=== PATIENT | female | born 1960 | race Caucasian/White ===

== ENCOUNTER 2018-11-27 00:21 | Outpatient (CLI) | payer OTHER, SELFPAY ==
--- NOTE | 2018-11-27 15:30 | DI.MAMMO_ITS ---
SYMPTOM/DIAGNOSIS: SCREENING, Z12.31 MAMMOGRAMS: Mammograms were interpreted according to the usual protocol including computer analysis with CAD system, tomosynthesis and C view imaging. Comparison is made with prior examinations. Breast density, Category C. No suspicious masses or microcalcifications are seen. There is no definite evidence of malignancy. IMPRESSION: Negative mammogram. Routine screening is recommended. Category 1C. MQSA ASSESSMENT OF FINDINGS: Negative. Category 1. Patient will receive a letter notifying them of these results. Bi-RADS category C. The breasts are heterogeneously dense, which may obscure small masses.
== END 2018-11-27 00:41 ==
PROVIDERS: PCP Neuromusculoskeletal Medicine & OMM; Visit Provider Neuromusculoskeletal Medicine & OMM
DX: Z12.31 Encounter for screening mammogram for malignant neoplasm of breast (principal)
CPT/HCPCS: 77063; 77067

== ENCOUNTER 2020-10-22 02:36 | Outpatient (CLI) | payer OTHER, SELFPAY ==
--- NOTE | 2020-10-22 | DI.MAMMO_ITS ---
EXAM: MG MAMMO SCREENING CLINICAL HISTORY: SCREENING, Z00.00 TECHNIQUE: Mammograms were interpreted according to the usual protocol including computer analysis w [employer] CAD system, tomosynthesis and C-view imaging. COMPARISON: FINDINGS: The breasts are heterogeneously dense. No dominant mass or clumped microcalcification is identified in either breast. The examination is compared with multiple previous examinations including November 2018 and there has been no gross interval change in appearance in comparison with the prior studies. IMPRESSION: No specific evidence of malignancy at this time. Routine screening examinations are suggested at yea rly intervals due to the family history of breast carcinoma. BI-RADS Category 1 - Negative Breast Density - Category C - Heterogeneously dense
== END 2020-10-22 02:56 ==
PROVIDERS: PCP Neuromusculoskeletal Medicine & OMM; Visit Provider Neuromusculoskeletal Medicine & OMM
DX: Z00.00 Encounter for general adult medical examination without abnormal findings (principal); Z12.31 Encounter for screening mammogram for malignant neoplasm of breast; Z80.3 Family history of malignant neoplasm of breast
CPT/HCPCS: 77063; 77067

== ENCOUNTER 2021-12-29 16:23 | Outpatient (CLI) | payer OTHER, SELFPAY ==
--- NOTE | 2021-12-29 | DI.MAMMO_ITS ---
Exam(s) MAMMO SCREENING EXAM: MAMMO SCREENING CLINICAL HISTORY: SCREENING MAMMO FOR BREAST CANCER Z12.31 TECHNIQUE: Mammograms were interpreted according to the usual protocol including computer analysis w [facility] CAD system, tomosynthesis and C-view imaging. COMPARISON: FINDINGS: The breasts are heterogeneously dense. No dominant mass or clumped microcalcification is identified in either breast. The current examination is compared with previous examinations including September 2020 and there has been no gross interval change in appearance in comparison with the prior studies. IMPRESSION: No specific evidence of malignancy at this time. Routine screening examinations are suggested at yea rly intervals due to the family history of breast carcinoma. BI-RADS Category 1 - Negative Breast Density - Category C - Heterogeneously dense
== END 2021-12-29 16:43 ==
PROVIDERS: PCP Neuromusculoskeletal Medicine & OMM; Visit Provider Neuromusculoskeletal Medicine & OMM
DX: Z12.31 Encounter for screening mammogram for malignant neoplasm of breast (principal); R92.8 Other abnormal and inconclusive findings on diagnostic imaging of breast
CPT/HCPCS: 77063; 77067

== ENCOUNTER → 2022-05-18 02:48 | Outpatient (CLI) | payer OTHER, SELFPAY ==
--- NOTE | 2022-05-18 15:30 | DI.DEXA_ITS ---
Exam(s) XR DEXA BONE DENSITY W/WO NICOLA EXAM: XR DEXA BONE DENSITY W/WO NICOLA CLINICAL HISTORY: FAMILY H/O OSTEOPOROSIS, Z82.62 TECHNIQUE: [employer] C densitometer analysis of left hip, lumbar spine and left forearm. COMPARISON: No exams were available for comparison FINDINGS: Lateral view of the thoracic and lumbar spine shows no evidence of compression fractures. Bone mineral density measurements of the lumbar spine correspond to a total T-score of -3.0, in the osteoporotic range. Bone mineral density measurements of the left hip correspond to a total T-score of -1.6. The femora l neck T-score is -1.9, in the osteopenic range.. The left forearm bone mineral density measurements correspond to a T-score of the distal 3rd of -0.7 , in the normal range.. IMPRESSION: Osteoporosis of the lumbar spine. Osteopenia of the left hip and normal bone mineral density of the left forearm.
== END ==
PROVIDERS: PCP Neuromusculoskeletal Medicine & OMM; Visit Provider Neuromusculoskeletal Medicine & OMM
DX: Z82.62 Family history of osteoporosis (principal); M81.0 Age-related osteoporosis without current pathological fracture; M85.89 Other specified disorders of bone density and structure, multiple sites
CPT/HCPCS: 77080

== ENCOUNTER 2022-05-19 08:12 | Outpatient (CLI) | payer OTHER, SELFPAY ==
--- NOTE | 2022-05-19 08:00 | RT.EKG_ITS ---
APPROVED REPORT Exam: Resting ECG Reason for Exam: CP Patient Location: O HR:58 bpm ECG Measurements Heart Rate 58 AXIS DC 140 P 59 QRSd 106 QRS 21 QT 410 T 27 QTc 403 Conclusion Sinus rhythm...normal P axis, V-rate 50- 99 Baseline wander in lead(s) V1 Normal Electrocardiogram
== END 2022-05-19 08:13 | disposition home or self-care (01) ==
LOC: DI.CARD 08:13
PROVIDERS: PCP Neuromusculoskeletal Medicine & OMM; Visit Provider Internal Medicine Cardiovascular Disease
DX: R07.9 Chest pain, unspecified (principal)
CPT/HCPCS: 93010

== ENCOUNTER 2022-12-29 13:35 | Outpatient (REF) | payer OTHER, SELFPAY ==
[2022-12-29 12:36] LABS: C Diff PCR Negative (Negative)
[2022-12-29 23:39] LABS: Campylobacter PCR Negative (Negative); Shiga Toxin PCR Negative (Negative); Shigella/Enteroinvasive Ecoli Negative (Negative)
[2022-12-30 08:47] LABS: Salmonella PCR Positive (Negative)
[2023-01-02 12:43] LABS: Calprotectin <50.0 mcg/g
== END 2022-12-29 13:36 | disposition home or self-care (01) ==
LOC: LBN 13:35
PROVIDERS: PCP Neuromusculoskeletal Medicine & OMM; Visit Provider Physician Assistant Medical
DX: R19.7 Diarrhea, unspecified (principal)
CPT/HCPCS: 87493; 87505; 83993; 87177

== ENCOUNTER 2023-01-15 10:57 | Outpatient (REF) | payer OTHER, SELFPAY ==
[2023-01-15 22:44] LABS: Campylobacter PCR Negative (Negative); Salmonella PCR Negative (Negative); Shiga Toxin PCR Negative (Negative); Shigella/Enteroinvasive Ecoli Negative (Negative)
== END 2023-01-15 10:58 | disposition home or self-care (01) ==
LOC: LBN 10:57
PROVIDERS: Physician Assistant Medical; PCP Neuromusculoskeletal Medicine & OMM; Visit Provider Neuromusculoskeletal Medicine & OMM
DX: B96.89 Other specified bacterial agents as the cause of diseases classified elsewhere (principal)
CPT/HCPCS: 87505; 87177

== ENCOUNTER 2023-01-26 12:47 | Outpatient (CLI) | payer OTHER, SELFPAY ==
--- NOTE | 2023-01-26 11:11 | DI.MAMMO_ITS ---
Exam(s) MAMMO SCREENING EXAM: MAMMO SCREENING CLINICAL HISTORY: SCREENING, Z00.00,ENCOUNTER FOR GEN MEDICAL EXAM. TECHNIQUE: Bilateral full field digital CC and MLO mammographic images were obtained with 3D tomosyn thesis and utilizing computer aided detection (CAD). COMPARISON: Prior mammograms were reviewed. FINDINGS: Fibroglandular tissue is again noted to be moderately dense. Asymmetric tissue medial of center in the right breast is unchanged from prior studies. Small nodular density lateral of center in left breast seen on CC view located 3 cm in from the nippl e is more evident than on prior studies. On the left MLO view there few nodular densities which are also someone unchanged in some slightly mo re prominent than on prior studies. One possible new nodule in the right breast. Benign-appearing microcalcifications again noted bilaterally. No new architectural distortion or skin thickening-traction. IMPRESSION: Moderately dense bilateral fibroglandular tissue. Bilateral nodular densities. Bilateral complete breast ultrasound recommended. BI-RADS Category 0 - Assessment Incomplete: Need additional imaging evaluation Breast Density - Category C - Heterogeneously dense Breast density Category C or D implies that the patient has dense breast tissue. Dense breast tissue can make it harder to find cancer on a mammogram. Dense breast tissue is also associated with an incr eased risk of breast cancer. This information about the result of the mammogram report was provided to the patient to raise their awareness. Use this report when you speak with the patient about their risks for breast cancer, which includes their family history. At that time, you may recommend additional screening tests (Ultrasoun d or MRI) as these tests may add significant information. A negative radiographic report should not delay biopsy if a dominant or clinically suspicious mass is present. Up to ten percent of cancers are not identified on mammography. A negative report may reinforce clinical impression. Adenosis and dense breasts may obscure an underlying neoplasm. False positive reports average 6 to 10%. Patient will receive a letter notifying them of these results.
== END 2023-01-26 13:07 ==
LOC: DI 12:48
PROVIDERS: PCP Neuromusculoskeletal Medicine & OMM; Visit Provider Neuromusculoskeletal Medicine & OMM
DX: Z00.00 Encounter for general adult medical examination without abnormal findings (principal); Z12.31 Encounter for screening mammogram for malignant neoplasm of breast; R92.8 Other abnormal and inconclusive findings on diagnostic imaging of breast
CPT/HCPCS: 77063; 77067

== ENCOUNTER 2023-02-07 01:46 | Outpatient (CLI) | payer OTHER, SELFPAY ==
--- NOTE | 2023-02-07 | DI.US_ITS ---
Exam(s) MG MAMMO SCREEN CALL BACK UNI US BREAST LT LIMITED EXAM: MG MAMMO SCREEN CALL BACK UNI and U/S breast LT limited CLINICAL HISTORY: bilat nodular densities, R92.8 abnl mammo. TECHNIQUE: Craniocaudal and mediolateral oblique Full Field Digital Mammography views of the left br east with Computer Aided Diagnosis followed by Tomosynthesis and left breast ultrasound. COMPARISON: Comparison is made with prior examinations. FINDINGS: Mammography/Tomosynthesis: Masses/Architectural Distortion: There is a well-circumscribed ovoid nodule in the lower outer quadra nt of the left breast. When compared to multiple prior examinations there has been no significant ch skyler in this nodule. No suspicious nodules or areas of architectural distortion are seen. Microcalcifictions: No suspicious pleomorphic-type are seen. Skin Thickening/Nipple Retraction: None. Limited left breast US: Echotexture: Normal appearance of the glandular tissue. Shadowing: No suspicious foci. Cyst: There is a 0.5 cm simple cyst at the 8 o'clock position of the left breast 5 cm from the nipple . Solid lesions: None seen. Ductal dilation: None. IMPRESSION: 1. No evidence of malignancy is noted. 2. Unless there is more urgent need, follow-up screening mammography is recommended, as per [place] [employer] guidelines. 3. The findings were discussed with the patient on the date of the examination. BI-RADS Category 2 - Benign Findings Breast Density - Category C - Heterogeneously dense Breast density Category C or D implies that the patient has dense breast tissue. Dense breast tissue can make it harder to find cancer on a mammogram. Dense breast tissue is also associated with an incr eased risk of breast cancer. This information about the result of the mammogram report was provided to the patient to raise their awareness. Use this report when you speak with the patient about their risks for breast cancer, which includes their family history. At that time, you may recommend additional screening tests (Ultrasoun d or MRI) as these tests may add significant information. A negative radiographic report should not delay biopsy if a dominant or clinically suspicious mass is present. Up to ten percent of cancers are not identified on mammography. A negative report may reinforce clinical impression. Adenosis and dense breasts may obscure an underlying neoplasm. False positive reports average 6 to 10%. Patient will receive a letter notifying them of these results.
== END 2023-02-07 02:06 ==
LOC: DI 01:46
PROVIDERS: PCP Neuromusculoskeletal Medicine & OMM; Visit Provider Neuromusculoskeletal Medicine & OMM
DX: Z12.31 Encounter for screening mammogram for malignant neoplasm of breast (principal); R92.8 Other abnormal and inconclusive findings on diagnostic imaging of breast; N63.23 Unspecified lump in the left breast, lower outer quadrant; N60.02 Solitary cyst of left breast
CPT/HCPCS: 76642; 77063; 77067

== ENCOUNTER 2023-04-11 10:49 | Outpatient (CLI) | payer OTHER, SELFPAY ==
[2023-04-11 09:46] LABS: BUN 26 mg/dL (7-18); CREATININE 0.8 mg/dL (0.55-1.02); Calcium 9.6 mg/dL (8.5-10.1); Calculated LDL 166 mg/dL (<100); Cholesterol 249 mg/dL (<200); Estimated GFR 83.78 (mL/min/1.73m2); HDL Cholesterol 66 mg/dL (40-60); TSH (W/Ref FT4) 1.06 uIU/mL (0.36-3.74); Triglyceride 88 mg/dL (<150)
[2023-04-11 09:59] LABS: Vitamin D 25 Total 32.3 ng/mL (30-100)
[2023-04-11 18:55] LABS: Parathyroid Hormone,Intact 50 pg/mL (19-88)
== END 2023-04-11 10:50 | disposition home or self-care (01) ==
LOC: LBO 11:07
PROVIDERS: PCP Neuromusculoskeletal Medicine & OMM; Visit Provider Internal Medicine Endocrinology, Diabetes & Metabolism
DX: E78.5 Hyperlipidemia, unspecified (principal); M81.0 Age-related osteoporosis without current pathological fracture; I25.10 Atherosclerotic heart disease of native coronary artery without angina pectoris; R79.89 Other specified abnormal findings of blood chemistry
CPT/HCPCS: 36415; 80061; 82306; 84520; 82310; 82565; 83970; 84443

== ENCOUNTER 2023-10-11 16:11 | Outpatient (REF) | payer OTHER, SELFPAY ==
[2023-10-12 23:35] LABS: Campylobacter PCR Negative (Negative); Salmonella PCR Negative (Negative); Shiga Toxin PCR Negative (Negative); Shigella/Enteroinvasive Ecoli Negative (Negative)
== END 2023-10-11 16:12 | disposition home or self-care (01) ==
LOC: LBN 16:11
PROVIDERS: PCP Nurse Practitioner Family; Visit Provider Nurse Practitioner Family
DX: R19.7 Diarrhea, unspecified (principal)
CPT/HCPCS: 87329; 87505

== ENCOUNTER 2023-10-11 16:31 | Outpatient (CLI) | payer OTHER, SELFPAY ==
[2023-10-11 16:14] LABS: Abs Immature Grans 0.02 10^3/uL (0.0-0.06); Absolute Basophil Count 0.05 10^3/uL (0.0-0.2); Absolute Eosinophil Count 0.13 10^3/uL (0.0-0.7); Absolute Lymphocyte Count 3.14 10^3/uL (1.2-3.4); Absolute Monocyte Count 0.58 10^3/uL (0.1-0.8); Absolute Neutrophil Count 4.94 10^3/uL (1.2-6.7); Basophils % 0.6; Eosinophils % 1.5; HGB 13.9 g/dL (11.2-15.7); Immature Grans % 0.2; Lymphocytes % 35.4; MCH 29.7 pg (27.0-33.0); MCHC 33.9 % (32.0-36.0); MCV 88 fL (80-95); MPV 9.2 fL (8.0-11.0); Monocytes % 6.5; Neutrophils % 55.8; Platelet Count 288 10^3/uL (130-400); RBC 4.68 10^6/uL (3.93-5.22); RDW 12.2 % (11.7-14.6); RDW-SD 39.4 fL; WBC 8.86 10^3/uL (4.4-10.8)
[2023-10-11 17:12] LABS: ALT 21 U/L (14-59); AST 14 U/L (15-37); Albumin 4.1 g/dL (3.4-5.0); Alkaline Phosphatase 83 U/L (46-116); Anion Gap 7.6 mmol/L (3-11); BUN 31 mg/dL (7-18); Bilirubin, Total 1.3 mg/dL (0.2-1.0); CO2 28.4 mmol/L (21.0-32.0); CREATININE 0.7 mg/dL (0.55-1.02); Calcium 9.6 mg/dL (8.5-10.1); Chloride 107 mmol/L (98-107); Estimated GFR 98.34 (mL/min/1.73m2); Glucose 118 mg/dL (74-106); Potassium 3.7 mmol/L (3.5-5.1); Sodium 143 mmol/L (136-145); Total Protein 7.2 g/dL (6.4-8.2)
== END 2023-10-11 16:32 | disposition home or self-care (01) ==
LOC: LBO 16:32
PROVIDERS: PCP Nurse Practitioner Family; Visit Provider Nurse Practitioner Family
DX: R19.7 Diarrhea, unspecified (principal)
CPT/HCPCS: 36415; 80053; 85025

== ENCOUNTER 2023-11-04 07:57 | Emergency (ER) | payer OTHER, SELFPAY ==
[2023-11-04 08:02] VITALS: BP 141/99; PULSE 80; RESP 18; TEMP 37; O2SAT 100
--- NOTE | 2023-11-04 08:10 | ED.GENADUL_ITS ---
Discharge Plan Disposition Patient Disposition: Home Discharge Details Clinical Impression: Stye, Conjunctivitis, Preseptal cellulitis of left eye Primary Care Provider: Kerri Dunlap ED Provider: Dale Trejo Home Meds and New Rx's Prescriptions: New cefdinir 300 mg capsule 300 mg PO BID 5 Days Qty: 10 0RF No Action Ubrelvy 50 mg tablet 50 mg PO .Qweekly PRN Rx Instructions: as a single dose; may repeat once in >=2 hours after first dose if needed ondansetron HCl 4 mg tablet 8 mg PO BID PRN Discharge Instructions Instructions: Erythromycin (Into the eye), Cefdinir (By mouth), Stye (ED), Periorbital Cellulitis in Adults (ED), Conjunctivitis (ED) Additional Instructions: You were seen in the emergency department for the irritation and swelling of your left eye as well as redness and reported crusted purulent material in the morning. You likely have a stye which is causing conjunctivitis and possibly a preseptal cellulitis with your mild swelling and redness of your lower eyelid. As we discussed please perform hot compresses to the eye 4-5 times per day, each session lasting between 5 and 10 minutes of repeated hot compresses with clean washcloth and water, if you start to drain the stye please express it manually with your hands. Use the provided erythromycin topical ophthalmic ointment 4 times per day for the next 5 days. I am going to cover you for preseptal cellulitis with the antibiotic cefdinir which will be sent to the pharmacy here in the hospital, if there is no clinical improvement within 24 to 48 hours please seek follow-up with your primary care to add coverage for MRSA though this is uncommon with these infections. Please return to the emergency department for any loss of vision, any severe eye pain with any eye movement and failure to start improving within 24 to 48 hours. Referrals: Kerri Dunlap NP [Primary Care Provider] - Discharge Data Discharge Date/Time-TO BE ENTERED AT DEPARTURE: 11/04/23 08:42 Medical Decision Making This dictation utilizes [id number] dictation software and may contain unedited grammatical errors. 63 y/o F presents to ED today with a chief complaint of L eye irritation, redness, possible stye. Onset and characteristics include noted yesterday, with eye crusted shut this morning, minor pain looking downward OS, no roofed area of lesion to target for drainage of stye. Patients' medical history: noncontributory. Family and social history: noncontributory. Pertinent exam findings / vital signs include EYES: Pupils PERRLA, EOMs intact without nystagmus, OD: normal conjunctiva, no exudates on lids/lashes. OS: small papular swelling to central lower eyelid, no area to target for drainage at this time, swelling and redness in the lower eyelid, conjunctiva erythematous, vision grossly intact - concern early pre-septal cellulitis with the patients clinical conjunctivitis and stye without roofed lesion to target for drainage.. Differential / pathologies of concern include pre-septal cellulitis, conjunctivitis, stye. Diagnostic studies of: -none. Interventions of: -erythromycin topical, outpt Rx for cefdinir x5days to cover early pre-septal cellulitis. ED Course/Assessment/Plan: Counseled the patient on likely skin and soft tissue infection as a source for stye and possible early preseptal cellulitis with clinical picture of active conjunctivitis as well, there was note area of the stye that was presenting superficially with a roof lesion to target for drainage. Counseled the patient on technique of hot compresses and provided erythromycin ophthalmic ointment as well as a prophylactic course of cefdinir to prevent further exacerbation of a possible preseptal cellulitis, counseled on warning signs for orbital cellulitis and strict return criteria. Findings not consistent with orbital cellulitis, sinusitis. Disposition of Stye, Conjunctivitis, Preseptal Cellulitis of Left Eye. Patient verbalized understanding of the plan and return to ED criteria and engaged in shared decision making. Medical Records Medical records reviewed: Yes I reviewed the patient's medical records. HPI General Date/Time Provider Initiated Documentation: 11/04/23 08:10 . HPI Narrative: 63 year-old female presents to ED today by POV/ambulating with a chief complaint of L eye swelling, redness, irritation with onset yesterday. Quality described as crusted shut in the morning, small pimple-like swelling on L lower eyelid, and some redness and swelling spreading downward from the lid, no radiation to severe pain with eye movement, does endorse some pain with looking down in the L eye, endorses blurry vision without visual loss, denies fever, headache. Severity is described as moderate. Palliating factors include nothing specific attempted yet. Provoking factors include nothing specific. Patient not anticoagulated. Related Data Home Medications Medication Instructions Recorded Confirmed ondansetron HCl 4 mg tablet 8 mg PO BID PRN 03/28/22 11/04/23 ubrogepant 50 mg tablet (Ubrelvy) 50 mg PO .Qweekly PRN 10/10/23 11/04/23 cefdinir 300 mg capsule 300 mg PO BID preseptal cellulitis 11/04/23 5 days #10 caps Previous Rx's Medication Instructions Recorded cefdinir 300 mg capsule 300 mg PO BID preseptal cellulitis 11/04/23 5 days #10 caps Allergies Allergy/AdvReac Type Severity Reaction Status Date / Time alcohol Allergy Mild facial Verified 11/04/23 08:05 flushing polyethylene glycol Allergy Verified 11/04/23 08:05 chocolate flavoring Allergy Uncoded 11/04/23 08:05 General Stated Complaint: EyeProblem ANDREEA: 4 Review of Systems All systems reviewed & are unremarkable except as noted in HPI and below PFSH All Active Problems (Updated 11/04/23 @ 08:24 by NESTOR Dorado) Preseptal cellulitis of left eye (Acute) Conjunctivitis (Acute) Stye (Acute) Hyperlipidemia (Acute) Atherosclerotic cardiovascular disease (Acute) Chest pain (Acute) Melanocytic nevus (Acute) Menopause present (Acute) Breast lump (Acute) Refractory migraine (Acute) Encounter for screening laboratory testing for COVID-19 virus (Acute) Encounter for screening for other viral diseases (Acute) Family History (Updated 05/19/22 @ 11:40 by Tito Malone RN) Mother Heart disease Father Heart disease father at 96 Social History (Updated 05/19/22 @ 11:48 by Tito Malone RN) Smoking/Tobacco Use Status: Never Smoking risk assessment performed?: Yes Alcohol Intake: never Drug use: Never Substance use type: does not use Household members: spouse Housing: house current occupation: diagnostic electrical tech [employer] What is your relationship status?: Panel score (0-1 are the most socially isolated patients): 1 What type of physical activity do you participate in: additional Details: meliton lazar Do you feel safe at home: Yes Do you feel safe in your relationship?: Yes Exam Narrative Exam Narrative: GENERAL APPEARANCE: Well-nourished, non-toxic, awake and alert, atraumatic, no acute distress. SKIN: Warm, pink, dry, intact, without rashes/lesions/ulcerations. HEAD: Normocephalic, atraumatic, normal hair distribution for gender/age. EYES: Pupils PERRLA, EOMs intact without nystagmus, OD: normal conjunctiva, no exudates on lids/lashes. OS: small papular swelling to central lower eyelid, no area to target for drainage at this time, swelling and redness in the lower eyelid, conjunctiva erythematous, vision grossly intact - concern early pre-septal cellulitis with the patients clinical conjunctivitis and stye without roofed lesion to target for drainage. ENT: Nares patent, no circumoral cyanosis, no facial swelling NECK: Supple, trachea midline, painless cervical ROM. LUNGS/CHEST: Non-labored respirations, normal A/P diameter, symmetrical expansion, no chest wall deformity HEART (CV/PV): No peripheral edema, no JVD. ABDOMEN: Non-distended, no guarding. MSK: Normal ROM, no swelling/deformity to bilateral UEs or LEs, moving all extremities without weakness, no cyanosis, spine midline, normal curvature. NEURO: Mental Status AAOx4 - alert to person, place, time, events No facial droop, no forehead involvement. Motor: No focal weakness - strength 5/5 in bilateral UEs and LEs, proximal and distal, symmetric. Gait normal: patient ambulated without ataxia into ED room. PSYCH: euthymic, cooperative, pleasant, appropriate speech Course Vital Signs Vital signs: Vital Signs Temperature 37 C 11/04/23 08:02 Pulse 80 11/04/23 08:02 Respiratory Rate 18 11/04/23 08:02 Blood Pressure 141/99 H 11/04/23 08:02 Pulse Oximetry 100 11/04/23 08:02 Temperature 37 C 11/04/23 08:02 Temperature Source Temporal Artery Scan 11/04/23 08:02 Pulse 80 11/04/23 08:02 Respiratory Rate 18 11/04/23 08:02 Respiratory Effort Normal, Non-Labored 11/04/23 08:06 Blood Pressure 141/99 H 11/04/23 08:02 Blood Pressure Position Sitting 11/04/23 08:02 Pulse Oximetry 100 11/04/23 08:02 Oxygen Delivery Method Room Air 11/04/23 08:02 Oxygen Flow Rate 0 11/04/23 08:02
[2023-11-04 08:18] VITALS: BP 141/99; PULSE 80; RESP 18; TEMP 37; O2SAT 100
[2023-11-04] MEDS: Erythromycin Ophth Oint 3.5 GM TUBE OS (08:32)
== END 2023-11-04 08:42 | disposition home or self-care (01) ==
PROVIDERS: Emergency Provider Physician Assistant; PCP Nurse Practitioner Family
DX: H00.015 Hordeolum externum left lower eyelid (principal); H10.89 Other conjunctivitis
CPT/HCPCS: 99283

== ENCOUNTER 2023-11-29 12:48 | Outpatient (CLI) | payer OTHER, SELFPAY ==
[2023-11-29 11:13] LABS: Abs Immature Grans 0.01 10^3/uL (0.0-0.06); Absolute Basophil Count 0.05 10^3/uL (0.0-0.2); Absolute Eosinophil Count 0.13 10^3/uL (0.0-0.7); Absolute Lymphocyte Count 2.44 10^3/uL (1.2-3.4); Absolute Monocyte Count 0.69 10^3/uL (0.1-0.8); Absolute Neutrophil Count 3.77 10^3/uL (1.2-6.7); Basophils % 0.7; Eosinophils % 1.8; HCT 45.2 % (36.0-46.0); HGB 14.9 g/dL (11.2-15.7); Immature Grans % 0.1; Lymphocytes % 34.4; MCH 29.4 pg (27.0-33.0); MCV 89 fL (80-95); Monocytes % 9.7; Neutrophils % 53.3; Platelet Count 297 10^3/uL (130-400); RBC 5.06 10^6/uL (3.93-5.22); RDW 12.1 % (11.7-14.6); RDW-SD 40.1 fL; WBC 7.09 10^3/uL (4.4-10.8)
[2023-11-29 11:40] LABS: ALT 23 U/L (14-59); AST 14 U/L (15-37); Albumin 4.1 g/dL (3.4-5.0); Alkaline Phosphatase 86 U/L (46-116); Anion Gap 8.7 mmol/L (3-11); BUN 31 mg/dL (7-18); Bilirubin, Total 2.3 mg/dL (0.2-1.0); CO2 30.3 mmol/L (21.0-32.0); CREATININE 0.7 mg/dL (0.55-1.02); Calcium 9.4 mg/dL (8.5-10.1); Chloride 102 mmol/L (98-107); Estimated GFR 98.34 (mL/min/1.73m2); Glucose 102 mg/dL (74-106); Potassium 3.6 mmol/L (3.5-5.1); Sodium 141 mmol/L (136-145); Total Protein 7.8 g/dL (6.4-8.2)
[2023-11-29 12:21] LABS: Hemoglobin A1C 5.6 % (<5.7)
[2023-11-29 22:16] LABS: Hepatitis C Ab w Rflx HCV PCR Negative (Negative)
== END 2023-11-29 12:49 | disposition home or self-care (01) ==
LOC: LBO 12:48
PROVIDERS: PCP Nurse Practitioner Family; Visit Provider Nurse Practitioner Family
DX: I25.10 Atherosclerotic heart disease of native coronary artery without angina pectoris (principal)
CPT/HCPCS: 36415; 80053; 86803; 83036; 85025

== ENCOUNTER → 2023-12-05 02:30 | Outpatient (CLI) | payer OTHER, SELFPAY ==
--- NOTE | 2023-12-05 07:00 | DI.US_ITS ---
Exam(s) US ABDOMEN LIMITED EXAM: US ABDOMEN LIMITED CLINICAL HISTORY: assess gallbladder EF,cholelithiasis,k80.20 TECHNIQUE: Ultrasound abdomen performed using standard protocol. COMPARISON: CT CT ABDOMEN PELVIS W from 11/29/2023 FINDINGS: PANCREAS: Normal where visualized. LIVER: Normal. Hepatopetal flow in the Portal Vein. The liver measures in 14.7 cm length. GALLBLADDER:Cholelithiasis. No evidence of wall thickening. No pericholecystic fluid identified. BILIARY SYSTEM:The common bile duct was not visualized on the examination. No intrahepatic biliary d uctal dilation. PIRES'S SIGN: Negative. RIGHT KIDNEY: Kidney is normal in size. No evidence of renal calculi. No evidence of hydronephrosis. No renal mass or cyst identified. ASCITES: None seen. IMPRESSION: Cholelithiasis. No sonographic evidence to suggest acute cholecystitis. DATA REPOSITORY:
--- NOTE | 2023-12-05 07:06 | DI.NM_ITS ---
Exam(s) NM HEPATOBILIARY SCAN GRP EXAM: NM HEPATOBILIARY SCAN GRP CLINICAL HISTORY: assess gallbladder EF,cholelithiasis,k80.20. TECHNIQUE: Injected dose: 5 mCi Tc-99 mebrofenin Initial dynamic images: 60 minutes Post-Gallbladder filling: The Ensure protocol was utilized. Addition images: 20 minute dynamic during CCK administration. COMPARISON: US US ABDOMEN LIMITED from 12/05/2023 FINDINGS: Normal hepatic transit time. Prompt excretion into the small bowel. Prompt excretion into the gallbladder. Gallbladder ejection fraction of 41 percent was calculated. Normal gallbladder ejection fraction with Ensure is greater than 33 percent). IMPRESSION: 1. Gallbladder ejection fraction is within normal limits. SNM guidelines: Gallbladder visualization should be present by 3 hours. Delayed fptjvso-ae-umler patel sit beyond 60 min raises the suspicion for partial common bile duct (CBD) obstruction. Gallbladder ejection fraction <35% has a good correlation with acalculous disease (i.e., chronic acal culous cholecystitis, cystic duct syndrome, sphincter of Oddi disease).
== END ==
PROVIDERS: PCP Nurse Practitioner Family; Visit Provider Nurse Practitioner Family
DX: K80.20 Calculus of gallbladder without cholecystitis without obstruction (principal)
CPT/HCPCS: 78227; 76705

== ENCOUNTER 2024-02-11 14:11 | Outpatient (REF) | payer OTHER, SELFPAY ==
--- NOTE | 2024-02-11 13:30 | PAPFT_PTH ---
PATIENT: Lawanda Caldwell LOC: [facility] U#:[id number] AGE/SX: 63/F ROOM: RE02/11/[address]: Yumiko Alves DO : 1960 BED: DIS: 02/11/2024 SPEC #: [id number] RECD: 02/11/24 17:57 STATUS: JANNIE REAllison #: [id number] STEPHAN: 02/11/24 13:[address]: Yumiko Alves DEPT: [facility] Cytology RECD BY: Ruth Chan ENTERED: 02/11/24 17:57 SP TYPE: PAPFT OTHR DR: Kerri Dunlap, JAQUELIN Tissues: 1 - CX/ENDOCX FOR PAP SMEARS Procedures: PAP THIN PREP/UVM Screening HPV DNA PROBE Comments: [id number]
== END 2024-02-11 14:12 | disposition home or self-care (01) ==
LOC: LBN 14:11
PROVIDERS: PCP Nurse Practitioner Family; Visit Provider Obstetrics & Gynecology
DX: Z12.4 Encounter for screening for malignant neoplasm of cervix (principal); Z11.51 Encounter for screening for human papillomavirus (HPV)
CPT/HCPCS: 88142; 87624

== ENCOUNTER 2024-02-16 08:11 | Outpatient (CLI) | payer OTHER, SELFPAY | END 2024-02-16 08:12 | disposition home or self-care (01) | LOC: LBO 08:12 | PROVIDERS: PCP Nurse Practitioner Family; Visit Provider Obstetrics & Gynecology | DX: R61 Generalized hyperhidrosis (principal) | CPT/HCPCS: 36415; 84443 ==

== ENCOUNTER 2024-02-22 17:28 | Outpatient (CLI) | payer OTHER, SELFPAY ==
[2024-02-22 16:14] LABS: ALT 18 U/L (14-59); AST 12 U/L (15-37); Albumin 3.8 g/dL (3.4-5.0); Alkaline Phosphatase 82 U/L (46-116); Anion Gap 10.4 mmol/L (3-11); BUN 30 mg/dL (7-18); Bilirubin, Total 0.8 mg/dL (0.2-1.0); CO2 30.6 mmol/L (21.0-32.0); CREATININE 0.7 mg/dL (0.55-1.02); Calcium 9.1 mg/dL (8.5-10.1); Chloride 107 mmol/L (98-107); Estimated GFR 98.34 (mL/min/1.73m2); Glucose 109 mg/dL (74-106); Potassium 3.8 mmol/L (3.5-5.1); Sodium 148 mmol/L (136-145); Total Protein 7.1 g/dL (6.4-8.2)
== END 2024-02-22 17:29 | disposition home or self-care (01) ==
LOC: LBO 17:29
PROVIDERS: PCP Nurse Practitioner Family; Visit Provider Surgery
DX: K80.20 Calculus of gallbladder without cholecystitis without obstruction (principal)
CPT/HCPCS: 36415; 80053

== ENCOUNTER → 2024-03-05 14:27 | Outpatient (CLI) | payer OTHER, SELFPAY ==
--- NOTE | 2024-03-05 09:45 | DI.MAMMO_ITS ---
Exam(s) MAMMO SCREENING EXAM: MAMMO SCREENING CLINICAL HISTORY: screening Z12.39 FOR BREAST CANCER. TECHNIQUE: Bilateral full field digital CC and MLO mammographic images were obtained with 3D tomosyn thesis and utilizing computer aided detection (CAD). COMPARISON: Prior mammograms were reviewed. Prior ultrasound reviewed. FINDINGS: The fibroglandular tissue pattern is again noted be moderately dense. In the right breast on the 3D MLO imaging there is an asymmetric density-possible nodule measuring 8 by 7 mm, located 4 cm in from the nipple on the MLO view. Spot compression and ultrasound recommende d. In the left breast on the MLO view there is an asymmetric density having the appearance of 2 small ad jacent nodules with total measurement of 1.3 x 1.0 cm, located approximately 4 cm in from the nipple on the MLO view. Spot compression views and ultrasound recommended Benign-appearing microcalcifications are noted in both breasts. There are no malignant-appearing [place] rocalcification groups. There is no significant architectural distortion nor skin thickening-retraction. IMPRESSION: Moderately dense fibroglandular tissue. Suggestion of bilateral nodules, as described above. Spot c ompression MLO views of both breasts as well as bilateral breast ultrasound recommended BI-RADS Category 0 - Assessment Incomplete: Need additional imaging evaluation Breast Density - Category C - Heterogeneously dense Breast density Category C or D implies that the patient has dense breast tissue. Dense breast tissue can make it harder to find cancer on a mammogram. Dense breast tissue is also associated with an incr eased risk of breast cancer. This information about the result of the mammogram report was provided to the patient to raise their awareness. Use this report when you speak with the patient about their risks for breast cancer, which includes their family history. At that time, you may recommend additional screening tests (Ultrasoun d or MRI) as these tests may add significant information. A negative radiographic report should not delay biopsy if a dominant or clinically suspicious mass is present. Up to ten percent of cancers are not identified on mammography. A negative report may reinforce clinical impression. Adenosis and dense breasts may obscure an underlying neoplasm. False positive reports average 6 to 10%. Patient will receive a letter notifying them of these results.
== END ==
PROVIDERS: PCP Nurse Practitioner Family; Visit Provider Nurse Practitioner Family
DX: Z12.31 Encounter for screening mammogram for malignant neoplasm of breast (principal); R92.8 Other abnormal and inconclusive findings on diagnostic imaging of breast
CPT/HCPCS: 77063; 77067

== ENCOUNTER → 2024-03-07 00:24 | Outpatient (CLI) | payer OTHER, SELFPAY ==
--- NOTE | 2024-03-07 | DI.US_ITS ---
Exam(s) US BREAST LT COMPLETE US BREAST RT COMPLETE MG MAMMO SCREEN CALL BACK BI EXAM: MG MAMMO SCREEN CALL BACK BI AND BILATERAL COMPLETE BREAST ULTRASOUND CLINICAL HISTORY: F/U MAMMO, R92.8,? BILAT BREAST NODULES,BILAT ASYMMETRIC DENSITIES. TECHNIQUE: BILATERAL spot mammographic images obtained with 3D tomosynthesisand utilizing computer aided detection (CAD). . Complete BILATERAL breast Ultrasound was also performed, including all 4 quadrants, the retroareolar regions, and both axillary regions. COMPARISON: Prior mammograms were reviewed. Prior ultrasound examinations were reviewed. This calvin tional imaging was performed due to findings described on the recent screening mammogram of 4. FINDINGS: DIAGNOSTIC MAMMOGRAM: Additional bilateral mammographic views performed todayare somewhat equivocal. We proceeded with ultrasound COMPLETE BILATERAL BREAST ULTRASOUND: RIGHT BREAST ULTRASOUND: No evidence of solid or significant cystic lesions in all 4 quadrants. Scanning of the right axilla is negative for significant adenopathy. LEFT BREAST ULTRASOUND: At the 4 o'clock position there is a 5 x 4 x 6 mm nodule which is somewhat di fficult to determine whether this is a truly discernible nodule versus is part of her fibroglandular tissue. It appears unchanged from images of this area performed on ultrasound examination of February 12. At the 8 o'clock position there is a benign 4 millimeter microcyst. No other focal findings in all 4 quadrants. Scanning of the left axilla is negative for significant adenopathy. IMPRESSION: 1. No mammographic evidence of malignancy. 2. Negative complete right breast ultrasound 3. Finding at the 4 o'clock position of the left breast on ultrasound measuring 5 x 4 x 6 mm as descr ibed above. Appears unchanged from ultrasound images of 1 year ago (January 2023). Recommend establishi that this is stable for 2 years. Therefore recommend repeat left breast ultrasound in 6 months to ensure stability of this finding at the 4 o'clock position The patient was informed of these findings and recommendations by myself prior to leaving the departm ent today. BI-RADS Category 3 - 6 month - Probably Benign Finding: Recommend follow-up mammography in 6 months Breast Density - Category C - Heterogeneously dense Breast density Category C or D implies that the patient has dense breast tissue. Dense breast tissue can make it harder to find cancer on a mammogram. Dense breast tissue is also associated with an incr eased risk of breast cancer. This information about the result of the mammogram report was provided to the patient to raise their awareness. Use this report when you speak with the patient about their risks for breast cancer, which includes their family history. At that time, you may recommend additional screening tests (Ultrasoun d or MRI) as these tests may add significant information. A negative radiographic report should not delay biopsy if a dominant or clinically suspicious mass is present. Up to ten percent of cancers are not identified on mammography. A negative report may reinforce clinical impression. Adenosis and dense breasts may obscure an underlying neoplasm. False positive reports average 6 to 10%. Patient will receive a letter notifying them of these results. At
== END ==
PROVIDERS: PCP Nurse Practitioner Family; Visit Provider Nurse Practitioner Family
DX: Z12.31 Encounter for screening mammogram for malignant neoplasm of breast (principal); N60.02 Solitary cyst of left breast; R92.8 Other abnormal and inconclusive findings on diagnostic imaging of breast
CPT/HCPCS: 76642; 77063; 77067

== ENCOUNTER 2024-04-03 12:01 | Day surgery (SDC) | payer OTHER, SELFPAY ==
--- NOTE | 2024-04-02 22:16 | W.PM.DSUDISC ---
Date of service: 04/03/24 Time of Service: 22:16 Discharge Plan Disposition Patient Disposition: Home Condition: Good Discharge Details Reason For Visit: Screening colonoscopy Attending Provider: Rory Wallis Primary Care Provider: Kerri Dunlap Home Meds and New Rx's Prescriptions: Continued Ubrelvy 100 mg tablet 100 mg PO ONCE PRN Rx Instructions: as a single dose; may repeat once in >=2 hours after first dose if needed Discontinued polyethylene glycol 3350 17 gram/dose powder 17 g PO DAILY Qty: 238 0RF bisacodyl [Dulcolax (bisacodyl)] 5 mg tablet,delayed release (DR/EC) 5 mg PO ONCE Qty: 8 0RF Discharge Instructions Additional Instructions: Lawanda, we were able to complete your colonoscopy today without much difficulty. I did not see any signs of tumors or polyps today. Although the prep was certainly adequate to see any worrisome problems, there were some areas that were a bit challenging to see. With a negative screening colonoscopy, I would typically recommend a 10-year follow-up. However, in light of the prep, I would stick with a 5-year plan for now. I think this is also the safest plan based on the type of polyp that she had removed previously. If you have any questions at all, please do not hesitate to call or ask at any time. 1. If tolerated, consume a soft, low fiber diet for 1-2 days. 2[address] Do not drive, drink alcohol, operate machinery, make critical decisions, or do activities that require coordination or balance for 24 hours. 3. Because air was put into your colon during the procedure, expelling air from your rectum (passing gas or farting) is normal. 4. You may not have a bowel movement for 1-3 days because of the colonoscopy prep. This is normal. 5. Go directly to the emergency room if you notice any of the following: Develop chills (warm to touch), or if you have a thermometer and your temperature is above 101 Difficulty breathing or difficultly swallowing Persistent vomiting Severe abdominal pain, other than gas cramps Severe chest pain Black, tarry stools Any bleeding ? exceeding one tablespoon 6. Call your physician if the site where your intravenous was started becomes red, swollen, painful, and warm to touch. 7. Your physician has reviewed your pre-procedure medications. Please continue to take those medications as previously ordered. You will be given specific information/education regarding any changes to your medications before leaving. Activity:: Activity as Tolerated Diet:: As Tolerated Discharge Orders Discharge Orders: Discharge Order (Routine); Ordered 04/02/24 Ordered By: Rory Wallis DS: Diagnosis Discharge Diagnosis (1) Encounter for screening colonoscopy: Status: Acute Asessment and Plan: Negative screening colonoscopy today; based on history of tubular adenoma, and to some degree the quality of the prep today, I recommend a 5-year interval for the next colonoscopy
--- NOTE | 2024-04-02 22:17 | W.COLOREPORT ---
Date of service: 04/03/24 Time of Service: 14:45 Colonoscopy Report Date of procedure: 04/03/24 Pre-op diagnosis general: Screening colonoscopy Post-op diagnosis procedure note: other (Negative screening colonoscopy) Procedure: Colonoscopy Surgeon: Rory Wallis Anesthesia Type: General:No Airway Estimated blood loss (mL): 0 Pathology: none sent Complications: None Disposition: same day Indications: Lawanda is a 63-year-old woman with a history of adenomatous polyps who needs her next screening colonoscopy Prep: Miralax/Dulcolax Procedure Start Time: 13:47 Procedure End Time: 14:28 Retraction Time: 19 Findings: Negative screening colonoscopy Procedure Description: After the induction of monitored anesthetic care, and with the patient in left lateral decubitus position, I began by performing an external anorectal exam.? Perineum and skin were normal, as was the anal verge.? There are some external hemorrhoids.? Next, I performed a digital rectal exam.? I did not appreciate any abnormal findings.? Next, I advanced a colonoscope into the rectal vault.? I performed retroflexion.? This appeared normal.? Using insufflation, I then advanced the colonoscope beyond the rectal folds and into the sigmoid colon before advancing towards the cecum.? The colon was a bit redundant and tortuous, but with gentle advancement, and some abdominal manipulation, we were able to advance into the cecum. This was identified by the ileocecal valve and appendiceal orifice.? I then began withdrawing the colonoscope using repeated irrigation as necessary for full evaluation of the colonic mucosa. The quality of the prep required extensive irrigation. The camera was carefully withdrawn over 19 minutes. once the scope was withdrawn to the level of the rectum, great care was taken to examine portions of the rectal folds.? Finally, the scope was withdrawn and the patient was brought to the same-day surgery recovery unit as the anesthetic wore off. ?The findings and instructions were shared with the patient prior to discharge. [place] Bowel Prep [place] Bowel Prep Right Colon: 1 Left Colon: 1 Transverse Colon: 2 Total Score: 4
[2024-04-03 12:22] VITALS: BP 134/94; PULSE 80; RESP 18; TEMP 36.6; O2SAT 99
[2024-04-03] MEDS: Lactated Ringers 1,000 ML 80 ML IV ×2 (12:52→13:44)
--- NOTE | 2024-04-03 13:28 | W.ANESPRE ---
General Info Date of Service Date Performed: 04/03/24 Height: 5 ft 6 in Weight: 58.3 kg Body Mass Index (BMI): 20.7 Surgical Procedure: Operation Date: 04/03/24 13:50 Proposed Procedure Side Surgeon p Colonoscopy Rory Wallis MD Meds Allergies and Home Medications Allergies Allergy/AdvReac Type Severity Reaction Status Date / Time chocolate AdvReac Intermediate Other (See Verified 04/03/24 12:24 Comment) alcohol AdvReac Tachycardia, Verified 04/03/24 12:24 nausea, vomiting Home Medication Medication Instructions Recorded ubrogepant 100 mg tablet (Ubrelvy) 100 mg PO ONCE PRN 03/27/24 Current Visit Medications: Current Medications Generic Name Dose Route Start Last Admin Trade Name Freq PRN Reason Stop Dose Admin Hyoscyamine Sulfate 0.125 mg 04/02/24 22:18 Hyoscyamine 0.125 Mg Sl/Oral/Chew SL 05/02/24 22:17 DIRECTED PRN Ringer's Solution 1,000 mls @ 80 mls/hr 04/03/24 06:00 04/03/24 12:52 IV 05/02/24 23:59 80 mls/hr INFUSION HAIM Administration IV Miscellaneous Supplies 1 each 04/03/24 06:00 Iv Access IV 05/02/24 23:59 DIRECTED HAIM Ondansetron HCl 4 mg 04/02/24 22:18 Ondansetron 4 Mg/2 Ml Vial IVP 05/02/24 22:17 Q4H PRN PRN Nausea / Vomiting Sodium Chloride 0 ml 04/03/24 06:00 Normal Saline Flush 10 Ml Syr IV 05/02/24 23:59 PRN PRN Sodium Chloride 0 ml 04/03/24 06:00 Normal Saline 10 Ml Vial IJ 05/02/24 23:59 DIRECTED PRN Sterile Water 0 ml 04/03/24 06:00 Water,Injection,Sterile 10 Ml Vial IJ 05/02/24 23:59 DIRECTED PRN PFSH Active Problems Active Problems: Problem Status Onset Code Encounter for screening colonoscopy Z12.11 Well woman exam with routine gynecological exam Z01.419 Night sweats R61 Cholelithiasis K80.20 Atherosclerotic cardiovascular disease I25.10 Migraine headache with aura G43.109 Osteoporosis M81.0 Hyperlipidemia E78.5 Vasomotor symptoms due to menopause N95.1 Sigmoid diverticulosis K57.30 Surgical History Surgical History S/P lateral meniscus repair of right knee Tobacco Smoking/Tobacco Use Status: Never Alcohol Alcohol Intake: never Substance Use Substance use: Never Substance use type: does not use Prental History History 1 Para 1 Hx # Term Pregnancies 1 Multiple births Hx # Pregnancies Ectopic pregnancies AB induced Hx Number of Living Children 1 AB spontaneous Vital Signs and Lab Results Vital Signs Most Recent Vital Signs in EMR: Most Recent Vital Signs Temp Pulse Resp BP Pulse Ox 36.6 C 80 18 134/94 H 99 04/03/24 12:22 04/03/24 12:22 04/03/24 12:22 04/03/24 12:22 04/03/24 12:22 Lab Results Blood Type / Crossmatch: No Data to Display Complete Blood Count: No Data to Display Complete Metabolic Panel: No Data to Display Liver Function Panel: No Data to Display Coagulation Panel: No Data to Display Cardiac Panel: No Data to Display Arterial Blood Gas: No Data to Display Venous Blood Gas: No Data to Display Pancreas Panel: No Data to Display Thyroid Panel: No Data to Display Infectious Disease: No Data to Display Blood Cultures: No Data to Display Toxicology Panel: No Data to Display Anesthesia Assessment and Plan Anesthesia History Personal History: No History of Anesthesia Complications Family History: No Family History of Anesthesia Complications Exercise Tolerance Exercise Tolerance: Metabolic Equivalents>4 Pertinent Negatives Pertinent Negatives: No Symptoms of GERD, No Major Cardiovascular Symptoms or Complaints and No Major Pulmonary Symptoms or Complaints Cardiac & Pulmonary Exam Cardiac Exam: Normal S1/S2 Heart Sounds Pulmonary Exam: Clear Bilateral Breath Sounds Implantable Cardiac Device Does patient have a Pacemaker or an ICD?: No Airway Exam Known Difficult Airway: No Mallampati Class: 1 Mouth Opening: Normal (> 3cm) Thyromental Distance: Greater than 3 cm Neck Range of Motion: Full ROM Neck Circumference: Normal Teeth Condition: Normal Dentition ASA Classification ASA Score: ASA 2 Emergency Case?: No NPO Status NPO Status: NPO Clears >2 hours, Solids >8 hours Anesthesia Plan Resuscitation Status: Full Code Anesthesia Technique: General Anesthesia Airway Planned: Natural Airway Monitors Used: Standard Monitors
[2024-04-03 13:31] VITALS: BMI 20.7
[2024-04-03 14:34] VITALS: BP 129/92; PULSE 85; RESP 16; TEMP 36.6; O2SAT 100
--- NOTE | 2024-04-03 14:41 | W.ANESPOSTOP ---
Postoperative Evaluation Date, Time and Location Date Performed: 04/03/24 Time Performed: 14:41 Patient Location: Day Surgery Unit Vital Signs Most Recent Imported Vital Signs: Most Recent Vital Signs Temp Pulse Resp BP Pulse Ox 36.6 C 85 16 129/92 H 100 04/03/24 14:34 04/03/24 14:34 04/03/24 14:34 04/03/24 14:34 04/03/24 14:34 Pain Score Most Recent Pain Score: Most Recent Pain Score Pain Level 1 04/03/24 14:34 Assessment Mental Status: Awake (Alert & Oriented to Patient Baseline) Airway and Respiratory Function: Patent airway with normal (patient baseline) respiratory exam Cardiovascular Function: Hemodynamically Stable Hydration Status: Adequately Hydrated Nausea & Vomiting: No Nausea or Vomiting Pain: Pain is tolerable per patient (crampy) Peripheral Nerve Block: Patient did not receive a nerve block
[2024-04-03 15:07] VITALS: BP 138/96; PULSE 79; RESP 16; TEMP 36.5; O2SAT 100
== END 2024-04-03 12:02 | disposition home or self-care (01) ==
PROVIDERS: PCP Nurse Practitioner Family; Visit Provider Surgery
PROC: 0DJD8ZZ Inspection of Lower Intestinal Tract, Via Natural or Artificial Opening Endoscopic (ICD-10-PCS; CPT 45378; principal; 2024-04-03 13:45)
DX: Z12.11 Encounter for screening for malignant neoplasm of colon (principal); I25.10 Atherosclerotic heart disease of native coronary artery without angina pectoris; Z86.010 Personal history of colon polyps
CPT/HCPCS: 45378; J2704

== ENCOUNTER 2024-06-27 02:25 | Outpatient (CLI) | payer OTHER, SELFPAY ==
[2024-06-27 11:45] LABS: ALT 25 U/L (14-59); AST 17 U/L (15-37); Albumin 4.1 g/dL (3.4-5.0); Alkaline Phosphatase 81 U/L (46-116); Anion Gap 7.1 mmol/L (3-11); BUN 23 mg/dL (7-18); Bilirubin, Total 1.89 mg/dL (0.2-1.0); CO2 28.9 mmol/L (21.0-32.0); CREATININE 0.7 mg/dL (0.55-1.02); Calcium 9.2 mg/dL (8.5-10.1); Calculated LDL 145 mg/dL (<100); Chloride 104 mmol/L (98-107); Cholesterol 225 mg/dL (<200); Estimated GFR 97.72 (mL/min/1.73m2); Glucose 102 mg/dL (74-106); HDL Cholesterol 68 mg/dL (40-60); Magnesium 2.1 mg/dL (1.8-2.4); Potassium 4.1 mmol/L (3.5-5.1); Sodium 140 mmol/L (136-145); Total Protein 7.5 g/dL (6.4-8.2); Triglyceride 62 mg/dL (<150); Vitamin D 25 Total 29.2 ng/mL (30-100)
[2024-06-27 18:47] LABS: HBs Antibody, Quant >1000.0 mIU/mL (See Note); Hep B Surface Ab Positive (See Note); Hepatitis B Core Antibody Negative (Negative); Hepatitis B Surface Antigen Negative (Negative)
[2024-06-27 18:50] LABS: HIV-1/2 Ag & Ab Screen Negative (Negative)
== END 2024-06-27 02:26 | disposition home or self-care (01) ==
LOC: LBO 02:25
PROVIDERS: PCP Nurse Practitioner Family; Visit Provider Nurse Practitioner Family
DX: Z00.00 Encounter for general adult medical examination without abnormal findings (principal); M81.0 Age-related osteoporosis without current pathological fracture; I25.10 Atherosclerotic heart disease of native coronary artery without angina pectoris; Z11.4 Encounter for screening for human immunodeficiency virus [HIV]; Z11.59 Encounter for screening for other viral diseases
CPT/HCPCS: 36415; 80053; 80061; 82306; 86704; 86706; 87340; 87389; 83735

== ENCOUNTER → 2024-06-30 18:43 | Outpatient (CLI) | payer OTHER, SELFPAY ==
--- NOTE | 2024-06-30 08:45 | DI.DEXA_ITS ---
Exam(s) XR DEXA BONE DENSITY W/WO NICOLA EXAM: XR DEXA BONE DENSITY W/WO NICOLA CLINICAL HISTORY: M81.0 Age related osteoporosis w/o current fx, re-eval osteoporosis TECHNIQUE: Routine DEXA evaluation of the lumbar spine, hip, or forearm. COMPARISON: CR XR DEXA BONE DENSITY W/WO NICOLA from 05/18/2022 FINDINGS: Performed on a Hologic unit. Lateral image: No compression fracture evident. Lumbar Spine total T-score: -3.5. This is in the osteoporosis range. The prior reading in April 2022 was -3.0 Hip total T-score:-1.9. This is in the osteopenia range. The prior reading in April 2022 was -1.6 Independent reading at the level of the femoral neck yields T-score of -1.5 Forearm total T-score: -1.9 which is in the osteopenia range. IMPRESSION: Bone mineral density measures in the osteoporosis range for the lumbar spine and in the osteopenia ra nge for the hip and forearm. Fracture risk is moderate-high. Note: Any spine fracture indicates 5x risk for subsequent spine fracture and 2x risk for subsequent h ip fracture. World Health Organization criteria for BMD interpretation classify patients: Normal...... T- Score at or above -1.0 Osteopenic... T- Score between -1.0 and -2.5 Osteoporosis... T-Score at or below -2.5
== END ==
PROVIDERS: PCP Nurse Practitioner Family; Visit Provider Nurse Practitioner Family
DX: M81.0 Age-related osteoporosis without current pathological fracture (principal); M85.89 Other specified disorders of bone density and structure, multiple sites
CPT/HCPCS: 77080

== ENCOUNTER 2024-10-30 01:26 | Outpatient (CLI) | payer OTHER, SELFPAY ==
--- NOTE | 2024-10-30 07:55 | DI.NM_ITS ---
APPROVED REPORT Exam: Exercise Treadmill Patient Location: Out-Patient Room/Bed: Stress Nurse: Angelo Haas RN and Cynthia Alves RN Ordering Provider:BRODIE AG, Contact Number: [phone] BMI: 6.91 Baseline Rhythm: Sinus Rhythm. Indications: Chest Pain. Medical History Medical History: Atherosclerotic Cardiovascular Disease (ASCVD); Hyperlipidemia; Migraines; Osteoporo sis. Cardiac Medications: Ubrelvy. Allergies: Alcohol; Chocolate. Cardiac Risk Factors: Family Hx; Hyperlipidemia; CVD. Previous Cardiac Procedures: None. Pretest Chest Pain Characteristics: None. Exercise History: Physically active. Physical Disabilities: None. Lung Sounds: Clear bilaterally throughout, anterior and posterior. Heart Sounds: S1 and S2 auscultated. Stress Test Details Test: Exercise stress testing was performed using a Aries protocol. Nuclear Acquisition: Rest Tc-99m/Stress Tc-99m 1 day Rest Isotope: Tc-99m Sestamibi. Dose: 10.1 Date: 10/30/2024 Injection Time: 1100 Stress Isotope: Tc-99m Sestamibi. Dose: 32.5 Date: 10/30/2024 Injection Time: 1235 HR Resting HR Supine: 71 bpm Max Heart Rate (APMHR): 158 bpm Resting HR Standin bpm Target HR (85% APMHR): 134 bpm Max HR Achieved: 160 bpm % of APMHR: 101 Recovery HR: 87 bpm HR response to stress: Normal HR response to stress. BP Resting BP Supine: 140/92 mmHg Resting BP Standin/80 mmHg Max BP: 154/80 mmHg Recovery BP: 126/84 mmHg BP response to stress: Normal blood pressure response to stress. ECG Resting ECG: Sinus Rhythm. Ectopy: None. Stress ECG: Sinus Tachycardia. ST Change: No significant ST segment changes noted. Arrhythmia: Rare PAC's. Recovery ECG: Sinus Rhythm. Recovery ST Change: No significant ST segment changes noted. Recovery Arrhythmia: Rare PAC's. Clinical Reason for Termination: Target HR Achieved. Stress Symptoms: None. Exercise duration: 09 min32 sec Highest Stage Reached: Stage 4: 4.2 mph at 16% grade. Exercise capacity: 11.03 METs Angina Score: None Ortez Treadmill Score: 9.6 Rate Pressure Product: [id number] Stress ECG Conclusion 1. Resting electrocardiogram was normal 2. Patient exercised on the Aries protocol completed workload of 11 METS 3. Normal heart rate and blood pressure response to exercise. The patient achieved 100% of predicted heart rate for age 4. There was no electrocardiographic evidence of myocardial ischemia 5. There were no significant dysrhythmias 6. See MPI report [place]tez Treadmill Score is 9.6 which is Low risk. Stress Test Summary STAGE Time (mins) Speed (mph) Grade (%) HR BP SpO2 SYMPTOMS METS Supine 71 140/92 95 Standing 63 130/80 98 1 3 1.7 10 106 122/88 98 4.5 2 6 2.5 12 112 130/90 96 7 3 9 3.4 14 135 150/90 97 10 4 12 4.2 16 160 13 1 min recovery 115 154/80 3 min recovery 94 144/80 6 min recovery 87 126/84 98 Pt. was conversing pleasantly with nursing staff upon leaving Stress Lab to head to Diagnostic Imagin g. Pt. left ambulatory in no apparent distress. MPI Conclusion Myocardial perfusion is normal. There is no ischemia or evidence of prior infarction Ejection fraction is 81%, hyperdynamic LV function
== END 2024-10-30 01:46 ==
PROVIDERS: PCP Nurse Practitioner Family; Visit Provider Nurse Practitioner Family
DX: R07.9 Chest pain, unspecified (principal)
CPT/HCPCS: 78452; 93017

== ENCOUNTER 2025-01-09 13:43 | Outpatient (CLI) | payer OTHER, SELFPAY ==
[2025-01-11 11:01] LABS: Lipoprotein (a) <7 nmol/L (<75)
== END 2025-01-09 13:44 | disposition home or self-care (01) ==
LOC: LBO 13:43
PROVIDERS: PCP Nurse Practitioner Family; Visit Provider Internal Medicine Cardiovascular Disease
DX: I25.10 Atherosclerotic heart disease of native coronary artery without angina pectoris (principal)
CPT/HCPCS: 36415; 83695

== ENCOUNTER 2025-07-30 23:05 | Emergency (ER) | payer OTHER, SELFPAY ==
[2025-07-30] MEDS: Tetracaine 0.5% 4 ML BTL (23:20)
--- NOTE | 2025-07-30 23:31 | W.ED.GENAD ---
Discharge Plan Disposition Patient Disposition: Transfer-Acute Inpatient Care Specific Acute Inpt Facility: [facility] Condition: Serious Discharge Details Clinical Impression: Ocular injury, Alkaline burn of left cornea Primary Care Provider: Kerri Dunlap ED Provider: Dale Bowen Home Meds and New Rx's Prescriptions: No Action ezetimibe 10 mg tablet 10 mg PO DAILY calcium carbonate 500 mg calcium (1,250 mg) tablet 500 mg PO DAILY pravastatin 10 mg tablet 10 mg PO DAILY aspirin [Adult Aspirin Regimen] 81 mg tablet,delayed release (DR/EC) 81 mg PO DAILY nitroglycerin 0.4 mg tablet, sublingual 0.4 mg sublingual Q5M Rx Instructions: do not exceed 3 doses per episode Ubrelvy 100 mg tablet 100 mg PO ONCE MDD 200mg PRN (Reason: migraine headache) Qty: 16 2RF Rx Instructions: as a single dose; may repeat once in >=2 hours after first dose if needed epinephrine 0.3 mg/0.3 mL auto-injector 0.3 ml IM Q5-15M PRN (Reason: hypersensitivity reaction) Qty: 2 4RF HPI General Date/Time Provider Initiated Documentation: 07/30/25 23:31. HPI Narrative: 65-year-old female with a past medical history of mitral valve regurg, migraines, high cholesterol, who presents today for evaluation of burn to the left eyeball. Patient states that about 3 hours ago she was working with a substance to help clear the drains at her home, the substance was called PocketSuite drain Banger with a reported pH of 14. Patient states that about 3 hours ago they were working and it splashed up into her left eye. She immediately wiped it off and then went to wash it out. She has been washing it out for the last 2 to 3 hours with water. She noticed significant redness in her eye, and some mild pain, and came to the ER for further assessment. She does not wear contact lenses. She was not wearing glasses at the time. She admits to some mild blurriness in her vision in the left eye. Mild achiness in the left eye, but no other complaint. She denies any fever or chills or headache. No other complaints at this time. Related Data Home Medications ?Medication ?Instructions ?Recorded ?Confirmed calcium carbonate 500 mg PO DAILY 06/03/24 07/09/25 aspirin 81 mg tablet,delayed 81 mg PO DAILY 01/02/25 07/09/25 release (Adult Aspirin Regimen) nitroglycerin 0.4 mg sublingual 0.4 mg sublingual Q5M 01/02/25 07/09/25 tablet pravastatin 10 mg tablet 10 mg PO DAILY 01/02/25 07/09/25 ubrogepant 100 mg tablet (Ubrelvy) 100 mg PO ONCE PRN migraine 03/05/25 07/09/25 headache #16 tabs ezetimibe 10 mg tablet 10 mg PO DAILY 07/09/25 07/09/25 epinephrine 0.3 mg/0.3 mL 0.3 ml IM Q5-15M PRN 07/10/25 injection, auto-injector hypersensitivity reaction #2 ea Previous Rx's ?Medication ?Instructions ?Recorded ubrogepant 100 mg tablet (Ubrelvy) 100 mg PO ONCE PRN migraine 03/05/25 headache #16 tabs epinephrine 0.3 mg/0.3 mL 0.3 ml IM Q5-15M PRN 07/10/25 injection, auto-injector hypersensitivity reaction #2 ea Allergies Allergy/AdvReac Type Severity Reaction Status Date / Time bee venom protein (honey bee) Allergy Severe Swelling/Ed Verified 07/09/25 13:41 shade chocolate AdvReac Intermediate Other (See Verified 07/09/25 13:40 Comment) alcohol AdvReac Tachycardia, Verified 07/09/25 13:40 nausea, vomiting General ANDREEA: 4 Exam Narrative Exam Narrative: 1.Const: Well-nourished, Well-developed, appearing stated age 2.Eyes: Pupils equal round and reactive to light. Left eye: EOMI, PERRL, Peripheral vision intact. No nystagmus. No clinical signs of septal/orbital cellulitis, no redness around the eye, no proptosis. No hyphema, no signs of trauma around the eye, no periorbital emphysema. No sluggishness of the pupil. No ophthalmoplegia. No afferent pupillary defect. Notable conjunctival injection in the left eye, particularly in the inferior half of the conjunctiva. Notable purulent eye fluid collections appear to be collected in the lateral aspects of the eyelids. Fluorescein exam positive for uptake in a disc like distribution at the 3 o'clock position and the 10 o'clock position external to the pupil on the conjunctiva., negative Alfonzo sign. 3.ENT: Atraumatic external nose and ears. Moist MM. Neck: Symmetric, trachea midline, No thyromegaly. 4.CVS: +S1/S2, Peripheral pulses 2+ and equal in all extremities. Brisk capillary refill in all extremities. 5.RESP: Unlabored respiratory effort. Clear to auscultation bilaterally. No wheezes rales or rhonchi 6.GI: Soft, Nontender/Nondistended, No hepatosplenomegaly. No guarding or rebound. 7.MSK: Normocephalic/Atraumatic, Extremities w/o deformity or ttp No cyanosis or clubbing, Normal movement of all extremities 8.Skin: Warm, Dry. No rashes or lesions. 9.Neuro: remnant sorter II-XII grossly intact. Sensation grossly intact, no focal neurologic deficits. 10.Psych: (AAO) x3. Appropriate mood and affect Medical Decision Making 65-year-old female with a past medical history of mitral valve regurg, migraines, high cholesterol, who presents today for evaluation of burn to the left eyeball. Patient states that about 3 hours ago she was working with a substance to help clear the drains at her home, the substance was called PocketSuite drain [employer] with a reported pH of 14. Patient states that about 3 hours ago they were working and it splashed up into her left eye. She immediately wiped it off and then went to wash it out. She has been washing it out for the last 2 to 3 hours with water. She noticed significant redness in her eye, and some mild pain, and came to the ER for further assessment. She does not wear contact lenses. She was not wearing glasses at the time. She admits to some mild blurriness in her vision in the left eye. Mild achiness in the left eye, but no other complaint. She denies any fever or chills or headache. No other complaints at this time. Notable conjunctival injection in the left eye, particularly in the inferior half of the conjunctiva. Notable purulent eye fluid collections appear to be collected in the lateral aspects of the eyelids. Fluorescein exam positive for uptake in a disc like distribution at the 3 o'clock position and the 10 o'clock position external to the pupil on the conjunctiva., negative Alfonzo sign. Concern for liquefactive necrosis from alkali burn. No evidence of corneal perforation at this time. pH testing reveals a pH of 9-10, right eye has a pH of around 7. Will perform aggressive washout with saline and Juan lens. Will monitor closely and reassess. 12:30 AM Patient has been washed out with 3 L of normal saline and 1 L of lactated ringer and repeat pH check is around 9 versus a very high 8 for pH. (Confirmatory test of the right eye still reveals a pH of around 7). We did reach out to [facility] ophthalmology and Dr Clifton, and they recommend continued aggressive irrigation. If the pH continues to show improvement and continued irrigation is indicated with recommendation for close follow-up tomorrow outpatient. If pH does not improve with continued irrigation she may need transfer for further evaluation and ophthalmologic assessment. 3:25 AM Patient has had an additional 4 L of normal saline irrigation into the left eye with the Juan lens. Repeat pH check continues to show a pH of 9. No improvement. Patient does not have any severe pain at this time. With the lack of improvement on the recheck I am highly concerned for potential damage and need for emergent ophthalmologic evaluation. Again, a Confirmatory test of the right eye still reveals a pH of around 7. I spoke with ophthalmology again, and they recommend ER to ER transfer for evaluation. Patient will be transferred for emergent ophthalmologic assessment I have extensively reviewed the treatment plan with the patient. I have addressed all patient concerns at this time. I have also discussed the plan with the admitting physician and they agree with the current assessment and plan and have agreed to assume responsibility for the patient. All parties demonstrate verbal understanding and agreement with our assessment and plan at this time. The documentation in this chart was dictated using hopTo dictation software. Please excuse any dictation errors. Patient will be transferred with continuous ocular irrigation. At time of transfer the patient was reassessed and continued to demonstrate No signs of acute respiratory distress requiring intubation, hemodynamic instability requiring pressor support, or rapidly declining mental status. PFSH All Active Problems (Updated 07/31/25 @ 03:33 by Dale Bowen DO) Alkaline burn of left cornea (Acute) Ocular injury (Acute) Coronary artery calcification seen on CT scan (Chronic) Atherosclerotic cardiovascular disease (Chronic) Suspected diagnosis based on elevated coronary artery calcium score, in the 300s Mild mitral valve regurgitation (Chronic) Echo 2024 Hyperlipidemia (Chronic) Migraine headache with aura (Chronic) Osteoporosis (Chronic) Vasomotor symptoms due to menopause (Chronic) Sigmoid diverticulosis (Chronic) Surgical History S/P cholecystectomy (03/23/25) History of colonoscopy (04/02/24) S/P lateral meniscus repair of right knee Family History Mother , 86 from metastatic breast cancer Heart disease Breast cancer late 40s-50s Myocardial infarction Father , 96 Heart disease Myocardial infarction Brother Prostate cancer Son No problems noted. Maternal Grandfather No problems noted. Maternal Grandmother Cancer Paternal Grandfather No problems noted. Paternal Grandmother No problems noted. Social History Smoking/Tobacco Use Status: Never Smoking risk assessment performed?: Yes Alcohol Intake: never Drug use: Never Substance use type: does not use Adopted: No Caregiver/Support person: No Household members: spouse and children Housing: house Number of Children: 1 number of grandchildren: 0 Communication Needs: None Education Level: college Details: Bachelors Do you need help understanding health information?: Never current occupation: diagnostic security alarm technician [employer] Sexually active: Yes Do you think of yourself as: straight/heterosexual Current gender identity: female What is your relationship status?: How often do you talk on the phone with friends or family?: twice per week How often do you get together with friends or relatives?: once per week How often do you attend mormonism or jain services?: decline to answer Do you belong to any clubs or organized social groups?: no Panel score (0-1 are the most socially isolated patients): 2 What type of physical activity do you participate in: additional Details: hiking Duration: 45-60 minutes/day Frequency: 3-4 times per week Karen/Muslim: Judaism Special karen needs: No Seatbelt use: always Helmet use: Yes Helmet use: always Drive intox or ride w/intox intermodal owner operator truck driver: No Firearms in home: Yes Firearms unloaded and locked: Yes Do you feel safe at home: Yes Do you feel safe in your relationship?: Yes Victim of physical abuse: No Victim of emotional abuse: No Victim of sexual abuse: No Would you like helpful sources: No Female Reproductive History Menstrual Menopause type: natural Date of menopause: 11/26/19 History History 1 Para 1 Hx # Term Pregnancies 1 Multiple births Hx # Pregnancies Ectopic pregnancies AB induced Hx Number of Living Children 1 AB spontaneous
[2025-07-30 23:53] VITALS: TEMP 37.4
[2025-07-31 00:03] VITALS: BP 168/96; O2SAT 99
[2025-07-31] MEDS: Fluorescein STRIPS 100/BOX 1 MG (00:37)
--- NOTE | 2025-07-31 04:47 | NUR.NOTE ---
This RN accessed PTs chart to perform ED charge nurse duties and assist PTs RN with charting. Nursing Note:
== END 2025-07-31 04:42 | disposition short-term general hospital (02) ==
PROVIDERS: Emergency Provider Student in an Organized Health Care Education/Training Program; PCP Nurse Practitioner Family
DX: T54.3X1A Toxic effect of corrosive alkalis and alkali-like substances, accidental (unintentional), initial encounter; T26.62XA Corrosion of cornea and conjunctival sac, left eye, initial encounter; H57.12 Ocular pain, left eye; Y92.008 Other place in unspecified non-institutional (private) residence as the place of occurrence of the external cause
CPT/HCPCS: 99285

== ENCOUNTER 2025-09-07 10:50 | Outpatient (CLI) | payer OTHER, SELFPAY ==
[2025-09-07 12:15] LABS: ALT 19 U/L (14-59); AST 14 U/L (15-37); Albumin 4.1 g/dL (3.4-5.0); Alkaline Phosphatase 82 U/L (46-116); Bilirubin, Total 1.4 mg/dL (0.2-1.0); Calculated LDL 84 mg/dL (<100); Cholesterol 164 mg/dL (<200); HDL Cholesterol 65 mg/dL (>or=50); Total Protein 7.5 g/dL (6.4-8.2); Triglyceride 79 mg/dL (<150)
[2025-09-07 12:27] LABS: Bilirubin, Direct 0.3 mg/dL (0.0-0.2)
[2025-09-07 12:34] LABS: Anion Gap 9.6 mmol/L (3-11); BUN 32 mg/dL (7-18); CO2 29.4 mmol/L (21.0-32.0); Calcium 9.3 mg/dL (8.5-10.1); Chloride 102 mmol/L (98-107); Estimated GFR 100.80 (mL/min/1.73m2); Glucose 110 mg/dL (74-106); Potassium 4.0 mmol/L (3.5-5.1); Sodium 141 mmol/L (136-145); Vitamin D 25 Total 34 ng/mL (30-100)
== END 2025-09-07 10:51 | disposition home or self-care (01) ==
LOC: LBO 10:51
PROVIDERS: PCP Nurse Practitioner Family; Visit Provider Nurse Practitioner Family
DX: I25.10 Atherosclerotic heart disease of native coronary artery without angina pectoris (principal); M81.0 Age-related osteoporosis without current pathological fracture
CPT/HCPCS: 36415; 80048; 80061; 80076; 82306

== ENCOUNTER → 2025-09-24 04:03 | Outpatient (CLI) | payer OTHER, SELFPAY ==
--- NOTE | 2025-09-24 08:45 | DI.MAMMO_ITS ---
Exam(s) US BREAST LT COMPLETE US BREAST RT COMPLETE MG MAMMO SCREENING EXAM: MG MAMMO SCREENING AND BILATERAL COMPLETE BREAST ULTRASOUND CLINICAL HISTORY: screening, Z12.39. TECHNIQUE: Bilateral full field digital CC and MLO mammographic images were obtained with 3D tomosynthesis and utilizing computer aided detection (CAD). COMPARISON: Prior mammograms were reviewed. Prior breast ultrasounds were also reviewed FINDINGS: BILATERAL MAMMOGRAM: There has been no significant change in the appearance and distribution of the fibroglandular tissue. There are no new right breast mammographic findings. The previously described small nodular densities in the lateral aspect of the left breast remain unchanged. There are no new spiculated masses nor new malignant appearing microcalcification groups. There is no significant architectural distortion nor skin thickening-retraction. COMPLETE BILATERAL BREAST ULTRASOUND: Right breast ultrasound: Slightly prominent ducts at 7 o'clock position again noted, unchanged. No new solid lesions in all 4 quadrants Scanning of the right axilla is negative for adenopathy. Left breast ultrasound: At the 4 o'clock position there is again noted and unchanged 5 x 4 by 6 millimeter nodular density which is again difficult to determine whether this is a truly discernible nodule versus just part of her fibroglandular tissue. This continues to remain unchanged from ultrasound examinations dating back to January 2023. Adjacent to this is a small microcyst. At the 6 o'clock position there mildly prominent ducts. At the 8 o'clock position there is again noted a benign 3 millimeter microcyst. No other focal findings in the 4 quadrants of the left breast. Of the left axilla is negative for significant adenopathy. IMPRESSION: 1. Stable benign-appearing mammographic findings. No radiographic evidence of malignancy. 2. Stable benign-appearing ultrasound findings. Appropriate follow-up is keep this patient on a yearly mammogram and breast ultrasound schedule, with earlier imaging if a self detected breast change is noted BI-RADS Category 2 - Benign Findings Breast Density - Category C - The breast are heterogeneously dense, which may obscure small masses. Breast density Category C or D implies that the patient has dense breast tissue. Dense breast tissue can make it harder to find cancer on a mammogram. Dense breast tissue is also associated with an increased risk of breast cancer. This information about the result of the mammogram report was provided to the patient to raise their awareness. Use this report when you speak with the patient about their risks for breast cancer, which includes their family history. At that time, you may recommend additional screening tests (Ultrasound or MRI) as these tests may add significant information. A negative radiographic report should not delay biopsy if a dominant or clinically suspicious mass is present. Up to ten percent of cancers are not identified on mammography. A negative report may reinforce clinical impression. Adenosis and dense breasts may obscure an underlying neoplasm. False positive reports average 6 to 10%. Patient will receive a letter notifying them of these results.
== END ==
LOC: DI 04:03
PROVIDERS: PCP Nurse Practitioner Family; Visit Provider Nurse Practitioner Family
DX: Z12.31 Encounter for screening mammogram for malignant neoplasm of breast (principal); Z09 Encounter for follow-up examination after completed treatment for conditions other than malignant neoplasm; N63.25 Unspecified lump in the left breast, overlapping quadrants
CPT/HCPCS: 76642; 77063; 77067